=== PATIENT | male | born 1985 | race African-American/Black ===

== ENCOUNTER 2021-08-10 17:42 | Emergency (ER) | payer SELFPAY ==
[2021-08-11 14:57] LABS: SARS-CoV-2 PCR by NAA DETECTED (NotDetected)
== END 2021-08-10 18:12 | disposition home or self-care (01) ==
LOC: NAV ERS 17:42
DX: U07.1 COVID-19 (principal); I10 Essential (primary) hypertension; Z79.899 Other long term (current) drug therapy
CPT/HCPCS: 99284; U0003; U0005